=== PATIENT | female | born 1995 | race Caucasian/White ===

== ENCOUNTER 2018-02-19 00:46 | Emergency (ER) | payer SELFPAY ==
[2018-02-19 00:54] VITALS: BP 130/88; PULSE 100; BMI 27.4
--- NOTE | 2018-02-19 01:09 | PDOC ---
History of Present Illness - General Chief Complaint: Pain, Acute Stated Complaint: ABDOMINAL PAIN Time Seen by Provider: 02/19/18 00:51 History Source: Patient - History of Present Illness Initial Comments: 02/19/18 01:14 22 year old female with LLQ and hard stool x 3 days. patient is visiting from [facility]. reports that she has been constipated once a month for 1.5 years. patient reports that she does not drink water and drinks milk once daily. patient denies narcotic pain med use/ drug abuse. Patient reports that LLQ pain is intermittent and severe pshx: appendectomy 3 years ago; T&A 4 years ago , left shoulder surgery Past History - Past Medical History Allergies/Adverse Reactions: Allergies Allergy/AdvReac Type Severity Reaction Status Date / Time No Known Allergies Allergy Verified 02/19/18 00:53 Home Medications: Ambulatory Orders Polyethylene Glycol 3350 [Miralax (For Daily Use) -] 17 gm PO BID #1 bottle Psyllium Husk [Metamucil] 0.4 gm PO DAILY #60 capsule 02/19/18 - Suicide/Smoking/Psychosocial Hx Smoking History: Never smoked Have you smoked in the past 12 months: No Information on smoking cessation initiated: No Hx Alcohol Use: No Drug/Substance Use Hx: No *Physical Exam - Vital Signs Last Vital Signs Temp Pulse Resp BP Pulse Ox 100 H 20 130/88 98 02/19/18 00:53 02/19/18 00:53 02/19/18 00:53 02/19/18 00:53 - Physical Exam General Appearance: Yes: Moderate Distress Respiratory/Chest: positive: Lungs Clear, Normal Breath Sounds Cardiovascular: positive: Regular Rhythm, Regular Rate Gastrointestinal/Abdominal: positive: Normal Bowel Sounds, Tender (LLQ), Soft Extremity: positive: Normal Capillary Refill, Normal Inspection, Normal Range of Motion Integumentary: positive: Normal Color, Dry, Warm Neurologic: positive: Fully Oriented, Alert, Normal Mood/Affect ED Treatment Course - LABORATORY CBC & Chemistry Diagram: 02/19/18 01:32 02/19/18 01:32 Progress Note - Progress Note Progress Note: a: CONSTIPATION; ABDOMINAL PAIN p: cbc cmp ua mag citrate BUN? CR elevated IVF x 1 likely dehydration. no previous available. abdominal xray: moderate stool burden. *DC/Admit/Observation/Transfer Diagnosis at time of Disposition: Constipation Qualifiers: Constipation type: unspecified constipation type Qualified Code(s): K59.00 - Constipation, unspecified - Discharge Dispostion Disposition: HOME - Prescriptions Prescriptions: Polyethylene Glycol 3350 [Miralax (For Daily Use) -] 17 gm PO BID #1 bottle Psyllium Husk [Metamucil] 0.4 gm PO DAILY #60 capsule - Referrals Referrals: Santana Baumann MD [Staff Physician] - - Patient Instructions Printed Discharge Instructions: DI for Constipation Additional Instructions: drink plenty of fluids. take metamucil as prescribed. take miralax as prescribed. follow up with your doctor as soon as possible. - Post Discharge Activity
[2018-02-19 01:47] LABS: BASO % 0.7 % (0-2.0); EOS % 0.9 % (0-4.5); HEMATOCRIT 37.5 % (32.4-45.2); HEMOGLOBIN 13.2 GM/dL (10.7-15.3); LYMPH % 21.9 % (8-40); MCH 30.6 pg (25.7-33.7); MCHC 35.2 g/dl (32.0-36.0); MEAN PLT VOLUME 9.2 fl (7.5-11.1); NEUT % 67.5 % (42.8-82.8); PLATELET COUNT 212 K/MM3 (134-434); RBC 4.32 M/mm3 (3.60-5.2); RDW 12.7 % (11.6-15.6); URINE APPEARANCE CLEAR; URINE BLOOD NEGATIVE (NEGATIVE); URINE COLOR YELLOW; URINE GLUCOSE (UA) NEGATIVE (NEGATIVE); URINE KETONE NEGATIVE (NEGATIVE); URINE LEUK ESTERASE NEGATIVE (NEGATIVE); URINE NITRITE NEGATIVE (NEGATIVE); URINE PROTEIN NEGATIVE (NEGATIVE); URINE UROBILINOGEN 4.0 E.U/dl mg/dL (0.2-1.0); WHITE BLOOD COUNT 7.6 K/mm3 (4.0-10.0)
[2018-02-19] MEDS ORDERED: morphine CARPU-JECT 4 MG/1 ML DISP.SYRIN IVPUSH ONE (02:24)
[2018-02-19] MEDS ORDERED: morphine SULFATE 4 MG/ML VIAL ONE (02:26)
[2018-02-19] MEDS ORDERED: SODIUM CHLORIDE 1,000 ML IV STA (02:27)
--- NOTE | 2018-02-19 02:40 | PDOC ---
*Physical Exam - Vital Signs Last Vital Signs Temp Pulse Resp BP Pulse Ox 100 H 20 130/88 98 02/19/18 00:53 02/19/18 00:53 02/19/18 00:53 02/19/18 00:53 ED Treatment Course - LABORATORY CBC & Chemistry Diagram: 02/19/18 01:32 02/19/18 01:32 - ADDITIONAL ORDERS Additional order review: Laboratory Results 02/19/18 02/19/18 02/19/18 01:32 01:32 01:32 Sodium 135 L Potassium 4.7 Chloride 101 Carbon Dioxide 22 Anion Gap 12 BUN 23 H Creatinine 1.4 H Creat Clearance w eGFR 46.60 Random Glucose 108 H Calcium 9.5 Total Bilirubin 0.8 AST 44 H ALT 64 Alkaline Phosphatase 73 Total Protein 8.4 H Albumin 3.9 Lipase 101 Serum , Qual Negative Urine Color Urine Appearance Urine pH Ur Specific Cost Urine Protein Urine Glucose (UA) Urine Ketones Urine Blood Urine Nitrite Urine Bilirubin Urine Urobilinogen Ur Leukocyte Esterase Urine HCG, Qual Cancelled 02/19/18 01:32 Sodium Potassium Chloride Carbon Dioxide Anion Gap BUN Creatinine Creat Clearance w eGFR Random Glucose Calcium Total Bilirubin AST ALT Alkaline Phosphatase Total Protein Albumin Lipase Serum , Qual Urine Color Yellow Urine Appearance Clear Urine pH 8.0 Ur Specific Cost 1.025 Urine Protein Negative Urine Glucose (UA) Negative Urine Ketones Negative Urine Blood Negative Urine Nitrite Negative Urine Bilirubin 4.0 Urine Urobilinogen 4.0 e.u/dl H Ur Leukocyte Esterase Negative Urine HCG, Qual 02/19/18 01:32 RBC 4.32 MCV 87.0 MCHC 35.2 RDW 12.7 MPV 9.2 Neutrophils % 67.5 Lymphocytes % 21.9 Monocytes % 9.0 Eosinophils % 0.9 Basophils % 0.7 - Medications Given in the ED: ED Medications Discontinued Medications Generic Name Dose Route Start Last Admin Trade Name Freq PRN Reason Stop Dose Admin Morphine Sulfate 4 mg 02/19/18 02:24 02/19/18 02:35 Morphine Injection - IVPUSH 02/19/18 02:25 4 mg ONCE ONE Administration Medical Decision Making - Medical Decision Making 02/19/18 04:46 Ms Malone is a 22 yo F who presents to the ER with a complaint of LLQ pain and hard stools Pt has noted constipation for the past year and a half Each month she is very constipated While in [facility], she goes to the ER each month and gets "pain medications" Pt denies fevers or chills Denies narcotic abuse She denies nauesa or vomiting pshx: appendectomy 3 years ago; T&A 4 years ago , left shoulder surgery Pt seen by Midlevel Provider under my direct supervision Ancillary studies reviewed I agree with plan as outlined by Midlevel Provider *DC/Admit/Observation/Transfer Diagnosis at time of Disposition: Constipation - Discharge Dispostion Disposition: HOME - Prescriptions Prescriptions: Polyethylene Glycol 3350 [Miralax (For Daily Use) -] 17 gm PO BID #1 bottle Psyllium Husk [Metamucil] 0.4 gm PO DAILY #60 capsule - Referrals Referrals: Santana Baumann MD [Staff Physician] - - Patient Instructions Printed Discharge Instructions: DI for Constipation Additional Instructions: drink plenty of fluids. take metamucil as prescribed. take miralax as prescribed. follow up with your doctor as soon as possible. - Post Discharge Activity
[2018-02-19] MEDS ORDERED: MAGNESIUM CITRATE 300 ML BOTTLE PO ONE (02:58)
[2018-02-19] MEDS ORDERED: MAGNESIUM CITRATE 300 ML BOTTLE ONE (03:03)
== END 2018-02-19 03:32 | disposition home or self-care (01) ==
LOC: JER 00:46
PROC: 3E0337Z Introduction of Electrolytic and Water Balance Substance into Peripheral Vein, Percutaneous Approach (ICD-10-PCS; principal; 2018-02-19)
PROC: 3E033NZ Introduction of Analgesics, Hypnotics, Sedatives into Peripheral Vein, Percutaneous Approach (ICD-10-PCS; 2018-02-19)
DX: K59.00 Constipation, unspecified (principal)
CPT/HCPCS: 36415; 74018-TC-FY; 80053; 81003; 83690; 84703; 85025; 99282-25; J7030

== ENCOUNTER 2018-02-19 23:29 | Emergency (ER) | payer SELFPAY ==
[2018-02-20 00:06] VITALS: TEMP 98.4; BMI 18.8
--- NOTE | 2018-02-20 00:32 | PDOC ---
History of Present Illness - General Chief Complaint: Pain Stated Complaint: PAIN Time Seen by Provider: 02/20/18 00:25 History Source: Patient Exam Limitations: No Limitations - History of Present Illness Initial Comments: CHIEF COMPLAINT: 22 y/o afebrile female who was seen here last night for constipation here again for constipation, abdominal pain and vomiting. HISTORY OF PRESENT ILLNESS: The patient states she went home and still did not have a bowel movement. Her last BM was on 02/17/18. She states she has a lot of abdominal pain and has been vomiting today. She denies fever, cough, SOB, CP , dysuria, hematuria. Vital signs on arrival are within normal limits. REVIEW OF SYSTEMS: GENERAL/CONSTITUTIONAL: No fever/chills. No weakness. No weight change. HEAD, EYES, EARS, NOSE AND THROAT: No change in vision. No ear pain or discharge. No sore throat. CARDIOVASCULAR: No chest pain or shortness of breath. RESPIRATORY: No cough, wheezing, or hemoptysis. GASTROINTESTINAL: +abd pain, vomiting and constipation. GENITOURINARY: No dysuria, frequency, or change in urination. MUSCULOSKELETAL: No joint or muscle swelling or pain. No neck or back pain. SKIN: No rash or easy bruising. NEUROLOGIC: No headache, vertigo, loss of consciousness, or loss of sensation. PHYSICAL EXAM: GENERAL: The patient is awake, alert, and fully oriented, in obvious discomfort , rocking back and forth while holding her abdomen. HEAD: Normal with no signs of trauma. ENT: Pupils equal, round and reactive to light, extraocular movements intact, sclera anicteric, conjunctiva clear. Neck supple. Lips very dry and cracked. Mucous membranes moderately dry. LUNGS: Clear to auscultation bilaterally. Normal excursion. No respiratory distress or use of accessory muscles. CV: RRR, S1/S2, no MRG. Cap refill < 2 sec. ABDOMEN: Soft, non-distended, non-tender even to deep palpation, no hepatomegaly or splenomegaly, no masses. Normal BS x 4 quadrants. EXTREMITIES: Normal range of motion, no edema. NEUROLOGICAL: Normal speech, normal gait. CN II-XII grossly intact. PSYCH: Normal mood, normal affect. SKIN: Warm, dry, normal turgor, no rashes or lesions noted. Past History - Past Medical History Allergies/Adverse Reactions: Allergies Allergy/AdvReac Type Severity Reaction Status Date / Time No Known Allergies Allergy Verified 02/20/18 00:03 Home Medications: Ambulatory Orders Polyethylene Glycol 3350 [Miralax (For Daily Use) -] 17 gm PO BID #1 bottle Psyllium Husk [Metamucil] 0.4 gm PO DAILY #60 capsule 02/19/18 COPD: No - Surgical History Appendectomy: Yes - Suicide/Smoking/Psychosocial Hx Smoking History: Never smoked Have you smoked in the past 12 months: No Information on smoking cessation initiated: No Hx Alcohol Use: No Drug/Substance Use Hx: No Substance Use Type: None *Physical Exam - Vital Signs Last Vital Signs Temp Pulse Resp BP Pulse Ox 98.4 F 93 H 20 134/80 99 02/20/18 00:03 02/20/18 00:03 02/20/18 00:03 02/20/18 00:03 02/20/18 00:03 ED Treatment Course - LABORATORY CBC & Chemistry Diagram: 02/20/18 00:40 02/20/18 01:26 Medical Decision Making - Medical Decision Making A/P: 22 y/o female here for the 2nd time in 24 hours for constipation. Had an abd xray yesterday. Will repeat labs and sent for CT scan today to r/o obstruction. 1. Labs 2. UA/culture/hcg 3. IV fluids 4. CT scan of abd/pelvis Ct scan abd/pelvis IMPRESSION: No large or small bowel obstruction. However, there is fairly severe constipation with large amounts of stool and gas dilating the right and transverse colon. Negative for diverticulitis or colitis. Ordered 40mg of PO lactulose and 2 fleet enemas. No BM ORdered SSE Still no BM Patient continues to be very uncomfortable Ordered second SSE Patient had very large BM, feels much better but tired and wants to go home. Instructed her to continue taking miralax and psyllium prescribed yesterday, drink at least 64oz of water daily and eat a diet high in fiber to stay regular. Suggested she return to the ER with any worsening or concerning symptoms The patient verbalizes understanding of all instructions, has no further questions and is awaiting discharge. *DC/Admit/Observation/Transfer Diagnosis at time of Disposition: Constipation Qualifiers: Constipation type: unspecified constipation type Qualified Code(s): K59.00 - Constipation, unspecified - Discharge Dispostion Disposition: HOME Condition at time of disposition: Improved - Referrals Referrals: Armani Fernandez MD [Staff Physician] - 1 week - Patient Instructions Printed Discharge Instructions: DI for Constipation, Increased Dietary Fiber May Improve Constipation Conditions With Pelvic Fredy Additional Instructions: Discharge Instructions: -Continue taking miralax and psyllium as prescribed -Drink at least 64 oz of water daily -Increase your fiber intake -Follow up with Dr. Fernandez within 2 weeks -Return to the ER with any worsening or concerning symptoms - Post Discharge Activity
[2018-02-20] MEDS ORDERED: SODIUM CHLORIDE 2,000 ML IV STA (00:40)
--- NOTE | 2018-02-20 00:41 | PDOC ---
*Physical Exam - Vital Signs Last Vital Signs Temp Pulse Resp BP Pulse Ox 98.4 F 93 H 20 134/80 99 02/20/18 00:03 02/20/18 00:03 02/20/18 00:03 02/20/18 00:03 02/20/18 00:03 ED Treatment Course - LABORATORY CBC & Chemistry Diagram: 02/20/18 00:40 02/20/18 01:26 Medical Decision Making - Medical Decision Making 02/20/18 00:41 agree with care from DANNI Márquez *DC/Admit/Observation/Transfer Diagnosis at time of Disposition: Constipation - Discharge Dispostion Disposition: HOME Condition at time of disposition: Improved - Referrals Referrals: Armani Fernnadez MD [Staff Physician] - 1 week - Patient Instructions Printed Discharge Instructions: Increased Dietary Fiber May Improve Constipation Conditions With Pelvic Fredy, DI for Constipation Additional Instructions: Discharge Instructions: -Continue taking miralax and psyllium as prescribed -Drink at least 64 oz of water daily -Increase your fiber intake -Follow up with Dr. Fernandez within 2 weeks -Return to the ER with any worsening or concerning symptoms - Post Discharge Activity
[2018-02-20 00:58] LABS: BASO % 1.2 % (0-2.0); EOS % 1.8 % (0-4.5); HEMATOCRIT 37.3 % (32.4-45.2); LYMPH % 24.7 % (8-40); MCH 30.3 pg (25.7-33.7); MCHC 34.8 g/dl (32.0-36.0); MEAN CELL VOLUME 87.2 fl (80-96); MEAN PLT VOLUME 9.6 fl (7.5-11.1); MONO % 11.4 % (3.8-10.2); NEUT % 60.9 % (42.8-82.8); PLATELET COUNT 208 K/MM3 (134-434); RBC 4.28 M/mm3 (3.60-5.2); RDW 13.8 % (11.6-15.6); WHITE BLOOD COUNT 7.5 K/mm3 (4.0-10.0)
[2018-02-20 01:02] LABS: HCG,QUALITATIVE URINE NEGATIVE
[2018-02-20 01:49] LABS: URINE APPEARANCE CLEAR; URINE BLOOD NEGATIVE (NEGATIVE); URINE COLOR YELLOW; URINE GLUCOSE (UA) NEGATIVE (NEGATIVE); URINE KETONE TRACE (NEGATIVE); URINE LEUK ESTERASE NEGATIVE (NEGATIVE); URINE NITRITE NEGATIVE (NEGATIVE); URINE PROTEIN NEGATIVE (NEGATIVE); URINE UROBILINOGEN 4.0 E.U/dl mg/dL (0.2-1.0)
[2018-02-20] MEDS ORDERED: ACETAMINOPHEN 1000 MG/100 ML VIAL (NON FORMULARY) IVPB ONE (01:53)
[2018-02-20] MEDS ORDERED: ACETAMINOPHEN INJECTION 100 ML IVPB ONE (01:53)
[2018-02-20 02:02] LABS: ALBUMIN 3.6 g/dl (3.4-5.0); ANION GAP 11 (8-16); BILIRUBIN,TOTAL 0.9 mg/dL (0.2-1.0); BLOOD UREA NITROGEN 20 mg/dL (7-18); CALCIUM 8.5 mg/dL (8.5-10.1); CHLORIDE 99 mmol/L (98-107); CO2 22 mmol/L (21-32); GLUCOSE,RANDOM 94 mg/dL (74-106); POTASSIUM 4.2 mmol/L (3.5-5.1); SGOT/AST 41 U/L (15-37); SGPT/ALT 53 U/L (12-78); SODIUM 132 mmol/L (136-145); TOT PROT 7.5 g/dl (6.4-8.2)
[2018-02-20 02:03] LABS: ALK PHOS 73 U/L (45-117)
[2018-02-20] MEDS ORDERED: MINERAL OIL ENEMA 133 ML ENEMA PR ONE (03:13)
[2018-02-20] MEDS ORDERED: LACTULOSE 20 GM/30 ML UDC (FOR ORAL USE ONLY) PO ONE (03:13)
[2018-02-20] MEDS ORDERED: LACTULOSE 20 GM/30 ML UDC (FOR ORAL USE ONLY) ONE (03:14)
[2018-02-20 06:22] VITALS: BP 140/95; PULSE 80
== END 2018-02-20 06:26 | disposition home or self-care (01) ==
LOC: JER 23:29
PROC: 3E033NZ Introduction of Analgesics, Hypnotics, Sedatives into Peripheral Vein, Percutaneous Approach (ICD-10-PCS; principal; 2018-02-19)
PROC: 3E0337Z Introduction of Electrolytic and Water Balance Substance into Peripheral Vein, Percutaneous Approach (ICD-10-PCS; 2018-02-19)
DX: K59.00 Constipation, unspecified (principal)
CPT/HCPCS: 36415; 74177-TC; 80053; 81003; 83605; 84703; 85025; 87086; 99283-25; J0131; J7030